=== PATIENT | male | born 1955 | race Caucasian/White ===

== ENCOUNTER 2023-10-26 14:23 | Emergency (ER) | payer OTHER, MEDICARE ==
[2023-10-26] MEDS: oxyCODONE 5 MG Tab PO STA (15:38)
[2023-10-26] MEDS: Ibuprofen 800 MG Tab PO STA (15:38)
[2023-10-26] MEDS: Diphtheria,Pertussis(Acell),Tetanus Vaccine 0.5 ML Syringe IM ONE (15:39)
[2023-10-26] MEDS: Acetaminophen 500 MG Tab PO STA (15:39)
[2023-10-26] MEDS: Bacitracin Oint 28.35 GM Tube TOP STA (16:20)
[2023-10-26] MEDS: Morphine 4 MG/ML Syringe IM STA (16:43)
[2023-10-26] MEDS: Ondansetron 4 MG Tab.DIS PO STA (16:43)
== END 2023-10-26 17:48 | disposition home or self-care (01) ==
LOC: MW.ED 14:23
DX: T22.291A Burn of second degree of multiple sites of right shoulder and upper limb, except wrist and hand, initial encounter (principal); T23.291A Burn of second degree of multiple sites of right wrist and hand, initial encounter; T22.211A Burn of second degree of right forearm, initial encounter; K21.9 Gastro-esophageal reflux disease without esophagitis; Z23 Encounter for immunization; Z79.899 Other long term (current) drug therapy; X19.XXXA Contact with other heat and hot substances, initial encounter
CPT/HCPCS: 16020; 90471; 90715; 96372; 99283; A9270; J2270